=== PATIENT | male | born 1970 | race Caucasian/White ===

== ENCOUNTER 2021-07-24 21:27 | Emergency (ER) | payer MEDICARE, SELFPAY ==
[2021-07-24] MEDS ORDERED: Sodium Chloride 0.9% 1,000 ML ONE (22:08)
[2021-07-24 22:28] LABS: #Basophils 0.2 thou/uL (0.0-0.2); #Eosinphils 0.1 thou/uL (0.0-0.7); #Lymphocytes 2.3 thou/uL (1.20-3.40); #Monocytes 1.7 thou/uL (0.11-0.59); #Neutrophils 8.5 thou/uL (1.40-6.50); %Basophils 1.2 % (0.0-1.0); %Eosinophils 0.9 % (0.0-10.0); %Neutrophils 66.9 % (42.0-75.0); Hemoglobin 10.2 g/dL (14.0-18.0); Mean Corpuscular HGB CONC 31.9 g/dL (32.0-36.0); Mean Corpuscular Hemoglobin 27.1 pg (27.0-31.0); Mean Corpuscular Volume 85.1 fL (78.0-98.0); Mean Platelet Volume 5.8 fL (7.4-10.4); Platelet Count 587 thou/uL (130-400); RBC Distribution Width 13.8 % (11.5-14.5); Red Blood Cell (RBC) Count 3.76 mill/uL (4.70-6.10); White Blood Cell (WBC) Count 12.8 thou/uL (4.8-10.8)
[2021-07-24 22:48] LABS: ALT (SGPT) 9 U/L (8-55); AST (SGOT) 15 U/L (5-34); Albumin 3.4 g/dL (3.5-5.0); Alkaline Phosphatase 64 U/L (40-110); Anion Gap 16 mmol/L (10-20); BUN (Urea Nitrogen) 14 mg/dL (8.9-20.6); Bilirubin, Total 0.4 mg/dL (0.2-1.2); Calc. Creatinine Clearance 0 mL/min (70-130); Calcium 9.7 mg/dL (7.8-10.44); Carbon Dioxide 25 mmol/L (22-29); Chloride 101 mmol/L (98-107); Globulin 3.9 g/dL (2.4-3.5); Glucose 103 mg/dL (70-105); Potassium 3.7 mmol/L (3.5-5.1); Protein, Total 7.3 g/dL (6.0-8.3); Sodium 138 mmol/L (136-145)
[2021-07-24] MEDS ORDERED: Sodium Chloride 0.9% 500 ML ONE (23:02)
[2021-07-24] MEDS ORDERED: Cefepime 1 GM VIAL ONE (23:02)
[2021-07-24] MEDS ORDERED: Sodium Chloride 0.9% 250 ML 250 ML ONE (23:02)
[2021-07-24] MEDS ORDERED: Sodium Chloride 0.9% 100 ML ONE (23:02)
[2021-07-25] MEDS ORDERED: Sodium Chloride 0.9% 250 ML 250 ML ONE (01:08)
[2021-07-25] MEDS ORDERED: Dexamethasone 10 MG/ML VIAL ONE (01:08)
[2021-07-25] MEDS ORDERED: Azithromycin 500 MG VIAL ONE (01:08)
[2021-07-25 02:23] LABS: SARS-CoV-2 NAA Rapid Test Not Detected (NotDetected)
[2021-07-25] MEDS ORDERED: HYDROcodone/Acetaminophen 10/325 mg Tablet ONE (02:42)
== END 2021-07-25 07:32 | disposition short-term general hospital (02) ==
LOC: MADERS 21:27
DX: J18.9 Pneumonia, unspecified organism (principal); Z20.822 Contact with and (suspected) exposure to COVID-19; E78.00 Pure hypercholesterolemia, unspecified; K21.9 Gastro-esophageal reflux disease without esophagitis; F17.210 Nicotine dependence, cigarettes, uncomplicated; Z79.899 Other long term (current) drug therapy; Z79.891 Long term (current) use of opiate analgesic; Z79.82 Long term (current) use of aspirin
CPT/HCPCS: 71045; 71250; 80053; 83605; 83880; 84484; 85025; 87040; 93005; 96365; 96367; 96375; J0456; J0692; J1100; J3370; J3490; J7030; J7050; U0002